=== PATIENT | male | born 1955 | race Caucasian/White ===

== ENCOUNTER → 2017-07-01 | Outpatient (CLI) | payer MEDICARE ==
--- NOTE | 2017-07-01 08:47 | Diagnostic Imaging Report ---
PROCEDURE:ABDOMINAL ULTRASOUND COMPARISON:None. INDICATION:Hepatitis C. TECHNIQUE:Briggs scale color Doppler ultrasound FINDINGS: Image segments of the inferior vena cava and abdominal aorta are normal. Normal pancreas. Right liver span 15 cm. Nodular liver margin with mildly coarsened and increased echotexture. Portal vein diameter 1 cm; normal flow direction. Multiple calcified gallstones, the largest measuring up to 1.5 cm in diameter. Gallbladder otherwise normal. Wall thickness 3 mm. Common bile duct diameter 4 mm. Right kidney: 12 x 4.6 x 5 cm Left kidney: 11.1 x 5.8 x 5.3 cm Both kidneys are normal. Spleen length 14 cm. CONCLUSION: 1. Cirrhotic liver without conspicuous mass. 2. Splenomegaly consistent with portal hypertension. 3. Cholelithiasis. Dictated by: Felix Li M.D. on 07/01/2017 at 8:47 Electronically approved by: Felix Li M.D. on 07/01/2017 at 8:47
== END ==
LOC: US 06:47
PROVIDERS: ATTEND Internal Medicine Gastroenterology
DX: R10.13 Epigastric pain (principal); Z12.11 Encounter for screening for malignant neoplasm of colon; R19.7 Diarrhea, unspecified; B18.2 Chronic viral hepatitis C; E66.3 Overweight; Z71.3 Dietary counseling and surveillance; F17.200 Nicotine dependence, unspecified, uncomplicated
CPT/HCPCS: 76700